=== PATIENT | female | born 1965 | race Hispanic/Latino ===

== ENCOUNTER 2016-10-25 07:01 | Observation (INO) | payer BC ==
[2016-10-25] MEDS ORDERED: ECOTRIN PO ONE (07:28)
[2016-10-25] MEDS ORDERED: NACL 0.9% 500 ML 500 ML IV SCH (08:00)
[2016-10-25 08:23] LABS: Basophils % (Auto) 0.9 % (0.0-1.8); Eosinophils % (Auto) 1.5 % (0.0-4.3); Hematocrit 40.1 % (30.3-42.9); Hemoglobin 13.6 gm/dl (10.1-14.3); Mean Corpuscular HGB Conc 34 % (30-34); Mean Corpuscular Hemoglobin 30 pg (28-32); Mean Corpuscular Volume 87 fl (79-97); Platelet Count 140 K/mm3 (140-440); Red Blood Count 4.58 M/mm3 (3.65-5.03); Red Cell Distribution Width 12.8 % (13.2-15.2)
[2016-10-25 08:33] LABS: INR 0.97 (0.87-1.13)
[2016-10-25 09:10] LABS: Anion Gap 17 mmol/L; Blood Urea Nitrogen 13 mg/dL (7-17); Carbon Dioxide 24 mmol/L (22-30); Chloride 101.3 mmol/L (98-107); Glucose 151 mg/dL (65-100); Potassium 3.7 mmol/L (3.6-5.0); Sodium 139 mmol/L (137-145)
[2016-10-25] MEDS ORDERED: HEPARIN/NS 5000 UNIT/500ML(CATH LAB) 1,000 ML IR ONE (09:50)
[2016-10-25] MEDS: VERSED ONE ×3 (10:00→10:30)
[2016-10-25] MEDS: SUBLIMAZE ONE ×3 (10:00→10:30)
[2016-10-25] MEDS: XYLOCAINE 2% INFILTRATI ONE ×2 (10:00→10:10)
[2016-10-25] MEDS: HEPARIN 10,000 UNITS/10 ML ONE ×2 (10:01→10:14)
[2016-10-25] MEDS: CALAN ONE ×2 (10:01→10:14)
[2016-10-25] MEDS ORDERED: HEPARIN 10,000 UNITS/10 ML ONE (10:34)
[2016-10-25] MEDS ORDERED: HEPARIN/NS 5000 UNIT/500ML(CATH LAB) 500 ML IR ONE (10:39)
[2016-10-25] MEDS ORDERED: EFFIENT PO ONE (10:49)
[2016-10-25] MEDS ORDERED: ALUM-MAG HYDROX-SIMETH 200-200-20MG/5ML ONE (10:49)
--- NOTE | 2016-10-25 13:08 | Cardiac Catherization Report ---
INDICATION: The patient is a 51-year-old white female with history of hypertension, diabetes mellitus, hyperlipidemia with known coronary artery disease with intervention of the LAD performed in 2007 at [facility]. Presently having chest pains mostly with emotion. The patient is on aspirin, atorvastatin in addition to metoprolol succinate and Imdur. She continues to have her chest pains whenever she is under stress. She has a stress EKG performed, during which time she had chest pain with no significant EKG changes. Because of her previous history and persistent chest pain since in spite of appropriate medical therapy, the patient was advised cardiac catheterization and the patient was explained of the cardiac catheterization, potential complications, and alternatives of therapy available and she is willing to undergo coronary intervention in case she has significant disease noted. DESCRIPTION OF PROCEDURE: The patient was brought to the catheterization laboratory in a fasting condition. Right wrist area and forearm thoroughly cleansed with Betadine solution. Sterile drapes were applied. Local anesthesia was achieved using 2% Xylocaine. Right radial artery puncture was made using 21-gauge arterial puncture needle via 6-Argentine sheath was introduced. The patient received 5 mg of intra-arterial verapamil and 3000 units of intravenous heparin. The patient also was sedated with IV Versed and fentanyl. Using multipurpose catheter, the coronary angiograms of the left coronary artery were obtained in multiple views followed by right coronary angiograms and left ventriculogram done in MIJARES projection using hand injection. At the end of the procedure, it was felt that the patient would benefit from intervention of the mid LAD and procedure was converted to interventional procedure. Following findings were noted on cardiac catheterization. HEMODYNAMICS: 1. Opening aortic pressure 126/91, left ventricular pressure 130/24. No gradient across the aortic valve. Estimated ejection fraction 65%. 2. Left ventriculogram done in MIJARES projection showed normal-sized left ventricle with normal contractility. Only limited amount of dye was injected and mitral regurgitation could not be evaluated. 3. Right coronary artery dominant vessel arises normally from right coronary cusp. There are diffuse irregularities with 40 to 50% mid lesion and mild ectasia noted. This dominant vessel did not show significant disease and the LV branches are PDA. Left coronary artery arises normal from left coronary cusp, left main without significant disease, in the proximal part of the LAD, there is a widely patent stent noted. Proximal part of the mid LAD showed 50% smooth lesion and mid LAD itself in the distal part shows 70 to 80% long eccentric lesion. Distal LAD is relatively small caliber vessel without significant disease. Circumflex artery shows mild 20 to 30% smooth lesion in the AV groove, otherwise [id number] sized marginal branches without significant disease. Collaterals none. FINAL IMPRESSION: 1. Normal-sized left ventricle with normal contractility. 2. Significant mid LAD lesion with patent stent in the proximal part of the LAD. Circumflex artery and RCA showing moderate nonobstructive disease. Coronary intervention of the mid LAD. The patient has indwelling 6-Argentine sheath in right radial artery. The patient received 70 units/kg of heparin. A 6-Argentine EBU 3.5 guiding catheter was advanced and engaged in the left coronary artery. Initially, it was attempted to perform a fractional flow reserve; however, because of technical issues, it could not be performed. A 0.014-inch [place]ffs XT guidewire was advanced into the distal LAD without difficulty. Lesion was dilated with 2.5 x 15 mm Euphora balloon followed by placement of a 2.75 x 22 mm Resolute Integrity stent inflated to normal pressure of 9 atmospheres with very good result. Lesion was reduced from 70 to 80% to 0%. No proximal or distal dissection or distal embolization noted. MINA 3 flow was noted pre and post procedure. The patient tolerated the procedure well without any significant hemodynamic changes of chest pain or EKG changes. Final angiogram showed no complications. ACT was obtained at the end of the procedure, which was 240 seconds. The patient received 60 mg of Effient and she will be continued on Effient for 1 year. Radial sheath will be removed and pressure bandage will be applied. FINAL IMPRESSION: Uncomplicated drug-eluting stent placement in the mid LAD with 2.75 x 22 mm Resolute Integrity stent. Heparin was given as anticoagulant and Effient was given in the director of cath lab. No untoward complications were noted. Findings were explained to the patient. The patient will be monitored in telemetry. JOB# [id number] LISA/DWIGHT
--- NOTE | 2016-10-25 13:49 | Short Stay Summary ---
Short Stay Documentation Date of service: 10/25/16 - History H&P: obtained from office - Allergies and Medications Current Medications: Allergies No Known Allergies Allergy (Verified 10/25/16 07:28) Home Medications Medication Instructions Recorded Confirmed Last Taken Type Aspirin BABY CHEW TAB 81 mg PO DAILY 10/25/16 10/25/16 10/24/16 History 81mg AtorvaSTATin 80 mg PO DAILY 10/25/16 10/25/16 10/24/16 History 80mg Escitalopram 20 mg PO DAILY 10/25/16 10/25/16 10/24/16 History 20mg Metformin HCl [Metformin] 1,000 mg PO BID 10/25/16 10/25/16 10/24/16 History 1000mg Metoprolol SUCCINATE ER TAB 50 mg PO DAILY 10/25/16 10/25/16 10/24/16 History 50mg Pioglitazone [Actos] 15 mg PO DAILY 10/25/16 10/25/16 10/24/16 History 15mg Telmisartan/Hydrochlorothiazid 1 tab PO DAILY 10/25/16 10/25/16 10/25/16 05:00 History [Telmisartan-Hctz 40-12.5 mg Tb] 1 tab Active Medications Aspirin (Baby Aspirin) 325 mg PO QDAY MONIK Atorvastatin Calcium (Lipitor) 80 mg PO QHS MONIK Hydrochlorothiazide (Hctz) 12.5 mg PO QDAY [facility] Sodium Chloride (Nacl 0.9% 500 Ml) 500 mls @ 50 mls/hr IV DIRECT MONIK Stop: 10/25/16 17:59 Last Admin: 10/25/16 08:13 Dose: 50 mls/hr Metoprolol Succinate (Toprol Xl) 50 mg PO QDAY MONIK Prasugrel (Effient) 10 mg PO QDAY MONIK - Brief post op/procedure progress note Date of procedure: 10/25/16 Pre-op diagnosis: CAD Post-op diagnosis: same Procedure: LHC with PCI - please see dictated cath report Anesthesia: local Estimated blood loss: none Pathology: none Condition: stable - Hospital course Hospital course: The patient is a 51-year-old female with a past medical history significant for hypertension, diabetes, hyperlipidemia, coronary artery disease with intervention. She presented for scheduled elective left heart catheterization and subsequently underwent LHC with PCI of the LAD via the a right radial artery per Dr. Koganti. She remained clinically and hemodynamically stable throughout the procedure and recovery. - Disposition Condition at discharge: Stable Disposition: DISCHARGED TO HOME OR SELFCARE - Discharge Diagnoses (1) CAD (coronary artery disease) Status: Chronic Qualifiers: Coronary Disease-Associated Artery/Lesion type: C [place] vs. transplanted heart: N Associated angina: A (2) HTN (hypertension) Status: Chronic Qualifiers: Hypertension type: H (3) Hyperlipemia Status: Chronic Qualifiers: Hyperlipidemia type: H (4) Diabetes Status: Chronic Qualifiers: Diabetes mellitus type: D Diabetes mellitus complication status: D Diabetes mellitus complication detail: D Diabetic retinopathy severity: D Proliferative retinopathy type: P Diabetes mellitus macular edema: D Diabetes mellitus continuous churn buttermaker insulin use: D Laterality: L Chronic kidney disease stage: C (5) Stented coronary artery Status: Chronic Short Stay Discharge Plan Activity: advance as tolerated Diet: low fat, low cholesterol, low salt Wound: open to air, keep clean and dry Follow up with: PRIMARY CARE, [Primary Care Provider] - 7 Days AMERICA SANTAMARIA MD [Staff Physician] - 7 Days Prescriptions: Prasugrel [Effient] 10 mg PO QDAY #30 tablet
[2016-10-26 06:12] LABS: Basophils % (Auto) 0.6 % (0.0-1.8); Hematocrit 39.6 % (30.3-42.9); Hemoglobin 13.3 gm/dl (10.1-14.3); Mean Corpuscular HGB Conc 34 % (30-34); Mean Corpuscular Hemoglobin 30 pg (28-32); Mean Corpuscular Volume 88 fl (79-97); Platelet Count 138 K/mm3 (140-440); Red Cell Distribution Width 13.1 % (13.2-15.2); White Blood Count 6.8 K/mm3 (4.5-11.0)
[2016-10-26 06:50] LABS: Creatine Kinase MB 1.2 ng/mL (0.0-4.0)
[2016-10-26 06:52] LABS: Anion Gap 22 mmol/L; Blood Urea Nitrogen 10 mg/dL (7-17); Calcium 8.7 mg/dL (8.4-10.2); Carbon Dioxide 19 mmol/L (22-30); Chloride 104.7 mmol/L (98-107); Creatine Kinase 65 units/L (30-135); Glucose 153 mg/dL (65-100); Potassium 4.1 mmol/L (3.6-5.0); Sodium 142 mmol/L (137-145)
--- NOTE | 2016-10-26 09:58 | XRay Report ---
AP CHEST : 10/26/16 CLINICAL: Post PCI. COMPARISON:None FINDINGS: Normal heart and pulmonary vessels. The lungs are normally expanded and clear. The bones and soft tissues are unremarkable. IMPRESSION: Normal chest.
[2016-10-26] MEDS ORDERED: TOPROL XL PO SCH (10:00)
[2016-10-26] MEDS ORDERED: BABY ASPIRIN PO SCH (10:00)
[2016-10-26] MEDS ORDERED: HCTZ PO SCH (10:00)
[2016-10-26 10:39] VITALS: BP 124/74
[2016-10-26] MEDS ORDERED: EFFIENT PO SCH (11:09)
== END 2016-10-26 11:00 | disposition home or self-care (01) ==
LOC: 4A 07:01 → OPU 07:01 → 4A 11:09
PROVIDERS: ADMIT Internal Medicine; ATTEND Internal Medicine
DX: I25.10 Atherosclerotic heart disease of native coronary artery without angina pectoris (principal); E78.5 Hyperlipidemia, unspecified; E66.9 Obesity, unspecified; I10 Essential (primary) hypertension; E11.9 Type 2 diabetes mellitus without complications; Z72.0 Tobacco use; Z95.5 Presence of coronary angioplasty implant and graft
CPT/HCPCS: 36415; 71010; 80048; 82550; 82553; 82962; 84484; 85025; 85347; 85610; 85730; 93005; 93010; 93458; A9270; C1725; C1769; C1874; C1887; C1894; C9600; G0378; J0153; J1644; J2250; J3010; J7040; 92928; Q9967